=== PATIENT | female | born 1945 | race Caucasian/White ===

== ENCOUNTER 2021-01-26 06:26 | Day surgery (SDC) | payer MEDICARE, BC ==
[2021-01-25 16:40] VITALS: BMI 28.8
[2021-01-26 07:57] LABS: Anion Gap 10 mmol/L (10-20); BUN (Urea Nitrogen) 18 mg/dL (9.8-20.1); Calc. Creatinine Clearance 69 mL/min (70-130); Calcium 10.2 mg/dL (7.8-10.44); Carbon Dioxide 28 mmol/L (23-31); Chloride 106 mmol/L (98-107); Glucose 110 mg/dL (83-110); Potassium 3.2 mmol/L (3.5-5.1); Sodium 141 mmol/L (136-145)
[2021-01-26 08:09] LABS: INR-International Normal Ratio 1.2; Prothrombin Time 14.8 sec (12.0-14.7)
[2021-01-26 08:10] LABS: PTT 36.6 sec (22.9-36.1)
[2021-01-26] MEDS ORDERED: Lidocaine 1% PF 5 ML VIAL ONE (08:16)
[2021-01-26] MEDS ORDERED: PROPOFOL 200 MG/20 ML VIAL ONE (08:16)
== END 2021-01-26 09:30 | disposition home or self-care (01) ==
LOC: CCL 06:26
PROVIDERS: ATTEND Internal Medicine Cardiovascular Disease
PROC: 5A2204Z Restoration of Cardiac Rhythm, Single (ICD-10-PCS; principal; 2021-01-26)
PROC: B24BZZ4 Ultrasonography of Heart with Aorta, Transesophageal (ICD-10-PCS; 2021-01-26)
DX: I48.0 Paroxysmal atrial fibrillation (principal); I48.92 Unspecified atrial flutter; I08.3 Combined rheumatic disorders of mitral, aortic and tricuspid valves; I70.0 Atherosclerosis of aorta; I10 Essential (primary) hypertension; K21.9 Gastro-esophageal reflux disease without esophagitis; E03.9 Hypothyroidism, unspecified; E78.00 Pure hypercholesterolemia, unspecified; E78.2 Mixed hyperlipidemia; E66.8 Other obesity; Z68.28 Body mass index [BMI] 28.0-28.9, adult; Z79.01 Long term (current) use of anticoagulants; Z79.82 Long term (current) use of aspirin; Z79.899 Other long term (current) drug therapy; Z88.0 Allergy status to penicillin; Z88.1 Allergy status to other antibiotic agents; Z88.2 Allergy status to sulfonamides; Z88.7 Allergy status to serum and vaccine; Z88.8 Allergy status to other drugs, medicaments and biological substances
CPT/HCPCS: 80048; 85610; 85730; 92960; 93005; 93010; 93312; J2704

== ENCOUNTER 2021-02-26 | Observation (INO) | payer MEDICARE, BC | END 2021-02-28 15:00 | disposition home or self-care (01) | PROVIDERS: ADMIT Internal Medicine | PROC: 0JH632Z Insertion of Monitoring Device into Chest Subcutaneous Tissue and Fascia, Percutaneous Approach (ICD-10-PCS; principal; 2021-02-26) ==

== ENCOUNTER 2021-03-29 10:50 | Inpatient (IN) | payer MEDICARE, BC ==
[~2021-03-29 10:50] MED LIST: Iopamidol-370 76% 500 ML 1 ML ONE
[2021-03-29] MEDS ORDERED: Acetaminophen 500 MG TAB ONE (12:04)
[2021-03-29 12:16] LABS: Bacteria/HPF None Seen HPF (None Seen); Bilirubin Negative (Negative); Blood, Urine Trace (Negative); Clarity Clear (Clear); Glucose, Urine (Dipstick) Normal (Negative); Ketone, Urine Negative (Negative); Leukocyte Negative Leu/uL (Negative); Nitrite Negative (Negative); Protein, Urine (Dipstick) 30 mg/dL (Neg-Trace); Specific Gravity, Urine 1.019 (1.002-1.036); Squamous Epithelial 0-3 HPF (0-3); Urobilinogen Normal mg/dL (Less than 2); WBC/HPF 0-3 HPF (0-3); pH, Urine 6.5 (5.0-9.0)
[2021-03-29 12:34] LABS: #Basophils 0.1 thou/uL (0.0-0.2); #Eosinphils 0.3 thou/uL (0.0-0.7); #Monocytes 0.6 thou/uL (0.11-0.59); #Neutrophils 4.5 thou/uL (1.40-6.50); %Basophils 1.1 % (0.0-1.0); %Eosinophils 4.3 % (0.0-10.0); %Lymphocytes 16.1 % (21.0-51.0); %Monocytes 8.7 % (0.0-10.0); %Neutrophils 69.8 % (42.0-75.0); Hemoglobin 13.4 g/dL (12.0-16.0); Mean Corpuscular HGB CONC 33.5 g/dL (32.0-36.0); Mean Corpuscular Hemoglobin 28.6 pg (27.0-31.0); Mean Corpuscular Volume 85.4 fL (78.0-98.0); Mean Platelet Volume 8.1 fL (7.4-10.4); Platelet Count 208 thou/uL (130-400); RBC Distribution Width 13.8 % (11.5-14.5); Red Blood Cell (RBC) Count 4.67 mill/uL (4.20-5.40); White Blood Cell (WBC) Count 6.4 thou/uL (4.8-10.8)
[2021-03-29 12:36] LABS: Critical Call w/ Read Back 7333
[2021-03-29 13:07] LABS: ALT (SGPT) 12 U/L (8-55); AST (SGOT) 16 U/L (5-34); Alkaline Phosphatase 62 U/L (40-110); Anion Gap 12 mmol/L (10-20); BUN (Urea Nitrogen) 12 mg/dL (9.8-20.1); Bilirubin, Total 0.5 mg/dL (0.2-1.2); Calc. Creatinine Clearance 0 mL/min (70-130); Calcium 10.3 mg/dL (7.8-10.44); Carbon Dioxide 26 mmol/L (23-31); Chloride 104 mmol/L (98-107); Globulin 2.5 g/dL (2.4-3.5); Glucose 116 mg/dL (83-110); Potassium 3.3 mmol/L (3.5-5.1); Protein, Total 6.5 g/dL (5.8-8.1); Sodium 139 mmol/L (136-145)
[2021-03-29 13:24] LABS: Free T4 (Free Thyroxine) 0.85 ng/dL (0.70-1.48); Thyroid Stimulating Hormone 2.3584 uIU/mL (0.35-4.94)
[2021-03-29] MEDS ORDERED: Magnesium 2 GM/50 ML BAG (IN WATER) ONE (14:47)
[2021-03-29 15:16] LABS: SARS-CoV-2 PCR by NAA Not Detected (NotDetected)
[2021-03-29] MEDS ORDERED: MEROPENEM 1 GM/50 ML 1 GM in Premix Bag 1 BAG IVPB SCH (16:15)
[2021-03-29] MEDS ORDERED: Acetaminophen 500 MG TAB PO SCH (16:30)
[2021-03-29] MEDS ORDERED: Sodium Chloride 0.9% 1,000 ML IV SCH (16:30)
[2021-03-29] MEDS ORDERED: Propafenone HCl 150 MG TAB PO SCH (16:30)
[2021-03-29] MEDS ORDERED: Magnesium 2 GM/50 ML 2 GM in Premix Bag 1 BAG IVPB SCH (16:45)
[2021-03-29] MEDS ORDERED: Lactated Ringer's 1,000 ML IV SCH (18:30)
[2021-03-29 18:39] VITALS: BMI 27.7
[2021-03-29] MEDS: Apixaban 5 MG TAB PO SCH (21:06)
[2021-03-29] MEDS ORDERED: Acetaminophen 325 MG TAB PO PRN (22:01)
[2021-03-29] MEDS ORDERED: Acetaminophen 650 MG Suppository PR PRN (22:01)
[2021-03-29] MEDS ORDERED: Ondansetron ODT 4 MG TAB PO PRN (22:01)
[2021-03-29] MEDS ORDERED: Ondansetron PF 4 MG/2 ML Vial IVP PRN (22:01)
[2021-03-30] MEDS ORDERED: Meropenem 1 GM in Sodium Chloride 0.9% 100 ML IVPB SCH (00:50)
[2021-03-30] MEDS ORDERED: MEROPENEM 1 GM/50 ML 1 GM in Premix Bag 1 BAG IVPB SCH (01:00)
[2021-03-30] MEDS: MEROPENEM 1 GM/50 ML 1 GM in Premix Bag 1 BAG IVPB SCH ×3 (01:03→16:26)
[2021-03-30] MEDS ORDERED: Potassium Chloride 20 MEQ TAB PO SCH (01:45)
[2021-03-30 05:13] LABS: #Eosinphils 0.3 thou/uL (0.0-0.7); #Lymphocytes 1.5 thou/uL (1.20-3.40); #Monocytes 0.9 thou/uL (0.11-0.59); %Basophils 0.3 % (0.0-1.0); %Eosinophils 3.5 % (0.0-10.0); %Lymphocytes 19.4 % (21.0-51.0); %Monocytes 11.9 % (0.0-10.0); Hemoglobin 14.8 g/dL (12.0-16.0); Mean Corpuscular HGB CONC 32.5 g/dL (32.0-36.0); Mean Corpuscular Hemoglobin 28.6 pg (27.0-31.0); Mean Corpuscular Volume 87.9 fL (78.0-98.0); Mean Platelet Volume 8.1 fL (7.4-10.4); Platelet Count 199 thou/uL (130-400); RBC Distribution Width 14.1 % (11.5-14.5); Red Blood Cell (RBC) Count 5.17 mill/uL (4.20-5.40); White Blood Cell (WBC) Count 7.7 thou/uL (4.8-10.8)
[2021-03-30 05:33] LABS: Anion Gap 14 mmol/L (10-20); BUN (Urea Nitrogen) 9 mg/dL (9.8-20.1); Calc. Creatinine Clearance 74 mL/min (70-130); Calcium 9.8 mg/dL (7.8-10.44); Carbon Dioxide 22 mmol/L (23-31); Chloride 108 mmol/L (98-107); Glucose 103 mg/dL (83-110); Magnesium 2.2 mg/dL (1.6-2.6); Potassium 3.2 mmol/L (3.5-5.1); Sodium 141 mmol/L (136-145)
[2021-03-30] MEDS: Apixaban 5 MG TAB PO SCH ×2 (08:23→20:38)
[2021-03-30] MEDS ORDERED: Potassium Bicarbonate/Cit Ac 20 MEQ TAB PO SCH (09:00)
[2021-03-30] MEDS: Potassium Chloride 20 MEQ in Lactated Ringer's 1,000 ML IV SCH (09:26)
[2021-03-30] MEDS ORDERED: PROPOFOL 20 ML ONE (10:11)
[2021-03-30] MEDS: Propafenone HCl 150 MG TAB PO SCH ×2 (16:18→20:37)
[2021-03-31] MEDS: MEROPENEM 1 GM/50 ML 1 GM in Premix Bag 1 BAG IVPB SCH ×2 (00:42→08:37)
[2021-03-31] MEDS: Potassium Chloride 20 MEQ in Lactated Ringer's 1,000 ML IV SCH (00:54)
[2021-03-31 05:02] LABS: #Eosinphils 0.5 thou/uL (0.0-0.7); #Lymphocytes 1.4 thou/uL (1.20-3.40); #Monocytes 0.9 thou/uL (0.11-0.59); %Basophils 0.7 % (0.0-1.0); %Lymphocytes 20.3 % (21.0-51.0); %Monocytes 13.3 % (0.0-10.0); %Neutrophils 58.6 % (42.0-75.0); Hemoglobin 13.1 g/dL (12.0-16.0); Mean Corpuscular HGB CONC 34.1 g/dL (32.0-36.0); Mean Corpuscular Hemoglobin 29.8 pg (27.0-31.0); Mean Corpuscular Volume 87.2 fL (78.0-98.0); Platelet Count 185 thou/uL (130-400); RBC Distribution Width 14.1 % (11.5-14.5); White Blood Cell (WBC) Count 6.8 thou/uL (4.8-10.8)
[2021-03-31 05:21] LABS: ALT (SGPT) 11 U/L (8-55); AST (SGOT) 13 U/L (5-34); Albumin 3.6 g/dL (3.4-4.8); Alkaline Phosphatase 55 U/L (40-110); Anion Gap 13 mmol/L (10-20); BUN (Urea Nitrogen) 20 mg/dL (9.8-20.1); Bilirubin, Total 0.4 mg/dL (0.2-1.2); Calc. Creatinine Clearance 60 mL/min (70-130); Calcium 10.1 mg/dL (7.8-10.44); Carbon Dioxide 22 mmol/L (23-31); Chloride 107 mmol/L (98-107); Globulin 2.3 g/dL (2.4-3.5); Glucose 103 mg/dL (83-110); Magnesium 2.1 mg/dL (1.6-2.6); Potassium 3.2 mmol/L (3.5-5.1); Protein, Total 5.9 g/dL (5.8-8.1); Sodium 139 mmol/L (136-145)
[2021-03-31] MEDS: Propafenone HCl 150 MG TAB PO SCH (08:34)
[2021-03-31] MEDS: Apixaban 5 MG TAB PO SCH (08:34)
[2021-03-31] MEDS ORDERED: Potassium Chloride 20 MEQ TAB PO SCH (11:00)
[2021-03-31 12:16] VITALS: BP 120/60; TEMP 98.3
== END 2021-03-31 15:16 | disposition home health service (06) | DRG 309 ==
LOC: ERS 10:50 → 2NO 15:45
PROVIDERS: ADMIT Internal Medicine; ATTEND Internal Medicine
PROC: 5A2204Z Restoration of Cardiac Rhythm, Single (ICD-10-PCS; principal; 2021-03-30)
PROC: B24BZZ4 Ultrasonography of Heart with Aorta, Transesophageal (ICD-10-PCS; 2021-03-30)
DX: I48.19 Other persistent atrial fibrillation (principal); K57.32 Diverticulitis of large intestine without perforation or abscess without bleeding; Z20.822 Contact with and (suspected) exposure to COVID-19; I08.3 Combined rheumatic disorders of mitral, aortic and tricuspid valves; E78.5 Hyperlipidemia, unspecified; I10 Essential (primary) hypertension; E89.0 Postprocedural hypothyroidism; E87.6 Hypokalemia; I48.4 Atypical atrial flutter; Z86.73 Personal history of transient ischemic attack (TIA), and cerebral infarction without residual deficits; Z88.1 Allergy status to other antibiotic agents; Z88.0 Allergy status to penicillin; Z88.2 Allergy status to sulfonamides; Z79.899 Other long term (current) drug therapy; Z79.82 Long term (current) use of aspirin; Z79.890 Hormone replacement therapy; Z79.01 Long term (current) use of anticoagulants; Z90.49 Acquired absence of other specified parts of digestive tract; Z90.710 Acquired absence of both cervix and uterus
CPT/HCPCS: 36415; 71045; 74177; 80048; 80053; 81003; 81015; 83735; 83880; 84439; 84443; 84484; 85025; 92960; 93005; 93010; 93312; 96365; 96375; J2185; J2704; J3475; J3480; J7120; Q9967; U0003; U0005

== ENCOUNTER 2021-05-29 10:25 | Outpatient (CLI) | payer MEDICARE, BC ==
[2021-05-29 12:55] LABS: Hemoglobin 11.7 g/dL (12.0-15.5); Mean Corpuscular HGB CONC 32.4 g/dL (32.0-36.0); Mean Corpuscular Hemoglobin 27.8 pg (27.0-33.0); Mean Corpuscular Volume 85.7 fl (81.6-98.3); Mean Platelet Volume 10.3 fl (7.4-10.4); Platelet Count 237 10x3/uL (150-450); RBC Distribution Width 14.9 % (11.5-14.5); Red Blood Cell (RBC) Count 4.21 10x6/uL (3.90-5.03); White Blood Cell (WBC) Count 5.1 10x3/uL (3.5-10.5)
[2021-05-29 13:08] LABS: PTT 26.5 sec (22.0-33.0); Prothrombin Time 10.9 sec (9.5-12.1)
[2021-05-29 13:35] LABS: Anion Gap 10 mmol/L (10-20); BUN (Urea Nitrogen) 12 mg/dL (9.8-20.1); Calc. Creatinine Clearance 0 mL/min (70-130); Calcium 9.8 mg/dL (7.8-10.44); Carbon Dioxide 26 mmol/L (23-31); Chloride 106 mmol/L (98-107); Glucose 91 mg/dL (83-110); Potassium 3.4 mmol/L (3.5-5.1); Sodium 139 mmol/L (136-145)
[2021-05-29 21:15] LABS: SARS-CoV-2 PCR by NAA Not Detected (NotDetected)
== END 2021-05-29 10:26 | disposition home or self-care (01) ==
LOC: LABBT 10:25
PROVIDERS: ATTEND Internal Medicine Cardiovascular Disease
DX: Z01.818 Encounter for other preprocedural examination (principal); Z51.81 Encounter for therapeutic drug level monitoring; I51.9 Heart disease, unspecified; I48.91 Unspecified atrial fibrillation; Z79.01 Long term (current) use of anticoagulants; Z20.822 Contact with and (suspected) exposure to COVID-19
CPT/HCPCS: 80048; 85027; 85610; 85730; 93005; U0003; U0005; 93010

== ENCOUNTER 2021-06-01 09:43 | Day surgery (SDC) | payer MEDICARE, BC ==
[2021-05-30 12:00] VITALS: BMI 27.4
[2021-06-01] MEDS ORDERED: PROPOFOL 200 MG/20 ML VIAL ONE (11:49)
== END 2021-06-01 13:16 | disposition home or self-care (01) ==
LOC: SDC 09:43
PROVIDERS: ATTEND Internal Medicine Cardiovascular Disease
PROC: B24BZZ4 Ultrasonography of Heart with Aorta, Transesophageal (ICD-10-PCS; principal; 2021-06-01)
DX: I48.19 Other persistent atrial fibrillation (principal); I48.4 Atypical atrial flutter; I08.3 Combined rheumatic disorders of mitral, aortic and tricuspid valves; I70.0 Atherosclerosis of aorta; K21.9 Gastro-esophageal reflux disease without esophagitis; I10 Essential (primary) hypertension; Z79.01 Long term (current) use of anticoagulants; Z79.82 Long term (current) use of aspirin; Z79.899 Other long term (current) drug therapy; Z88.0 Allergy status to penicillin; Z88.1 Allergy status to other antibiotic agents; Z88.2 Allergy status to sulfonamides; Z86.73 Personal history of transient ischemic attack (TIA), and cerebral infarction without residual deficits
CPT/HCPCS: 93312; J2704

== ENCOUNTER 2022-02-05 07:45 | Inpatient (IN) | payer MEDICARE, BC ==
[2022-02-05 08:12] LABS: #Eosinphils 0.4 thou/uL (0.0-0.7); #Lymphocytes 1.1 thou/uL (1.20-3.40); #Monocytes 0.9 thou/uL (0.11-0.59); #Neutrophils 5.7 thou/uL (1.40-6.50); %Basophils 0.5 % (0.0-1.0); %Eosinophils 4.7 % (0.0-10.0); %Lymphocytes 13.6 % (21.0-51.0); %Monocytes 11.4 % (0.0-10.0); %Neutrophils 69.8 % (42.0-75.0); Mean Corpuscular HGB CONC 32.4 g/dL (32.0-36.0); Mean Corpuscular Hemoglobin 27.1 pg (27.0-31.0); Mean Corpuscular Volume 83.7 fL (78.0-98.0); Mean Platelet Volume 8.4 fL (7.4-10.4); Platelet Count 285 thou/uL (130-400); RBC Distribution Width 14.8 % (11.5-14.5); Red Blood Cell (RBC) Count 4.07 mill/uL (4.20-5.40); White Blood Cell (WBC) Count 8.1 thou/uL (4.8-10.8)
[2022-02-05 08:23] LABS: Prothrombin Time 13.2 sec (12.0-14.7)
[2022-02-05 08:24] LABS: PTT 27.5 sec (22.9-36.1)
[2022-02-05] MEDS ORDERED: Furosemide 40 MG/4 ML VIAL ONE (08:33)
[2022-02-05] MEDS ORDERED: Aspirin Chewable 81 MG TAB ONE (08:33)
[2022-02-05 08:36] LABS: ALT (SGPT) 22 U/L (8-55); AST (SGOT) 29 U/L (5-34); Alkaline Phosphatase 73 U/L (40-110); Anion Gap 15 mmol/L (10-20); BUN (Urea Nitrogen) 24 mg/dL (9.8-20.1); Bilirubin, Total 0.5 mg/dL (0.2-1.2); Calc. Creatinine Clearance 0 mL/min (70-130); Calcium 9.9 mg/dL (7.8-10.44); Carbon Dioxide 20 mmol/L (23-31); Chloride 105 mmol/L (98-107); Estimated GFR 85; Globulin 2.9 g/dL (2.4-3.5); Glucose 111 mg/dL (83-110); Potassium 4.4 mmol/L (3.5-5.1); Protein, Total 6.9 g/dL (5.8-8.1); Sodium 136 mmol/L (136-145)
[2022-02-05] MEDS ORDERED: Nitroglycerin 0.4 MG TAB (25 Tab Bottle) SL PRN (10:15)
[2022-02-05] MEDS ORDERED: Ondansetron ODT 4 MG TAB PO PRN (10:18)
[2022-02-05] MEDS ORDERED: Ondansetron PF 4 MG/2 ML Vial IVP PRN (10:18)
[2022-02-05] MEDS ORDERED: Acetaminophen 325 MG TAB PO PRN (10:18)
[2022-02-05 12:13] LABS: Troponin I 0.013 ng/mL (< 0.028)
[2022-02-05] MEDS ORDERED: Diltiazem HCl 125 MG in Premix Bag 1 BAG IVPB SCH ×2 (14:00→18:30)
[2022-02-05 14:24] VITALS: BMI 27.6
[2022-02-05 14:53] LABS: Troponin I 0.011 ng/mL (< 0.028)
[2022-02-06 04:33] LABS: #Eosinphils 0.3 thou/uL (0.0-0.7); #Lymphocytes 1.4 thou/uL (1.20-3.40); #Monocytes 0.9 thou/uL (0.11-0.59); #Neutrophils 5.1 thou/uL (1.40-6.50); %Basophils 0.3 % (0.0-1.0); %Eosinophils 3.8 % (0.0-10.0); %Lymphocytes 18.3 % (21.0-51.0); %Monocytes 12.1 % (0.0-10.0); %Neutrophils 65.5 % (42.0-75.0); Hemoglobin 11.2 g/dL (12.0-16.0); Mean Corpuscular HGB CONC 32.4 g/dL (32.0-36.0); Mean Corpuscular Hemoglobin 27.7 pg (27.0-31.0); Mean Corpuscular Volume 85.4 fL (78.0-98.0); Mean Platelet Volume 8.8 fL (7.4-10.4); Platelet Count 245 thou/uL (130-400); RBC Distribution Width 14.7 % (11.5-14.5); Red Blood Cell (RBC) Count 4.03 mill/uL (4.20-5.40); White Blood Cell (WBC) Count 7.7 thou/uL (4.8-10.8)
[2022-02-06 05:02] LABS: Anion Gap 16 mmol/L (10-20); BUN (Urea Nitrogen) 20 mg/dL (9.8-20.1); Calc. Creatinine Clearance 81 mL/min (70-130); Calcium 9.8 mg/dL (7.8-10.44); Carbon Dioxide 21 mmol/L (23-31); Chloride 105 mmol/L (98-107); Estimated GFR 90; Glucose 104 mg/dL (83-110); Potassium 3.4 mmol/L (3.5-5.1); Sodium 139 mmol/L (136-145)
[2022-02-06] MEDS ORDERED: Propofol 500 MG/50 ML VIAL ONE (07:40)
[2022-02-06] MEDS ORDERED: Midazolam HCl 2 mg/2 ml Vial ONE (07:40)
[2022-02-06] MEDS ORDERED: Ketamine 50 MG/ML (10ML VIAL) ONE (07:40)
[2022-02-06] MEDS ORDERED: fentaNYL Citrate/PF 100 MCG/2 ML SYRINGE ONE (07:40)
[2022-02-06] MEDS ORDERED: Levothyroxine Sodium 50 MCG TAB PO SCH (07:45)
[2022-02-06] MEDS ORDERED: Heparin 10,000 UNITS/ 10 ML VIAL ONE (07:47)
[2022-02-06] MEDS ORDERED: Clindamycin/D5W 900 mg/50 ml Premix Bag ONE (09:37)
[2022-02-06] MEDS ORDERED: DOPamine 400 MG/D5W 250 ML 0 ML ONE (09:37)
[2022-02-06] MEDS ORDERED: Gentamicin 80 MG/100 ML BAG ONE (09:42)
[2022-02-06] MEDS ORDERED: Lidocaine 1% (PF) 30 ML VIAL ONE (09:42)
[2022-02-06] MEDS ORDERED: Spironolactone 25 MG TAB PO SCH (10:30)
[2022-02-06] MEDS ORDERED: Promethazine HCl 25 MG/ML VIAL IM PRN (12:37)
[2022-02-06] MEDS ORDERED: Ondansetron HCl/PF 4 MG/2 ML Vial IVP PRN (12:37)
[2022-02-06] MEDS ORDERED: Promethazine HCl 25 MG/ML VIAL IVPB PRN (12:37)
[2022-02-06] MEDS: Aspirin Chewable 81 MG TAB PO SCH (16:09)
[2022-02-06] MEDS ORDERED: Rosuvastatin 5 MG TAB PO SCH (21:00)
[2022-02-06] MEDS: Doxycycline 100 MG CAP PO SCH (21:44)
[2022-02-07 04:56] LABS: #Eosinphils 0.2 thou/uL (0.0-0.7); #Lymphocytes 1.1 thou/uL (1.20-3.40); #Neutrophils 7.2 thou/uL (1.40-6.50); %Basophils 0.2 % (0.0-1.0); %Eosinophils 2.5 % (0.0-10.0); %Lymphocytes 11.4 % (21.0-51.0); %Monocytes 10.5 % (0.0-10.0); %Neutrophils 75.3 % (42.0-75.0); Hemoglobin 11.5 g/dL (12.0-16.0); Mean Corpuscular HGB CONC 32.2 g/dL (32.0-36.0); Mean Corpuscular Hemoglobin 27.2 pg (27.0-31.0); Mean Corpuscular Volume 84.5 fL (78.0-98.0); Mean Platelet Volume 8.7 fL (7.4-10.4); Platelet Count 243 thou/uL (130-400); RBC Distribution Width 14.7 % (11.5-14.5); Red Blood Cell (RBC) Count 4.25 mill/uL (4.20-5.40); White Blood Cell (WBC) Count 9.6 thou/uL (4.8-10.8)
[2022-02-07 05:14] LABS: Anion Gap 13 mmol/L (10-20); BUN (Urea Nitrogen) 11 mg/dL (9.8-20.1); Calc. Creatinine Clearance 85 mL/min (70-130); Calcium 9.5 mg/dL (7.8-10.44); Carbon Dioxide 24 mmol/L (23-31); Chloride 103 mmol/L (98-107); Estimated GFR 91; Glucose 101 mg/dL (83-110); Potassium 3.3 mmol/L (3.5-5.1); Sodium 137 mmol/L (136-145)
[2022-02-07] MEDS ORDERED: Levothyroxine Sodium 50 MCG TAB PO SCH (06:00)
[2022-02-07] MEDS ORDERED: Spironolactone 25 MG TAB PO SCH (08:00)
[2022-02-07] MEDS ORDERED: Potassium Chloride 20 MEQ TAB PO SCH (08:00)
[2022-02-07] MEDS ORDERED: Sacubitril 49 MG/Valsartan 51 MG TABLET PO SCH (09:00)
[2022-02-07] MEDS: Doxycycline 100 MG CAP PO SCH (09:10)
[2022-02-07] MEDS: Aspirin Chewable 81 MG TAB PO SCH (09:11)
[2022-02-07] MEDS ORDERED: Midazolam HCl 2 mg/2 ml Vial ONE (10:40)
[2022-02-07] MEDS ORDERED: PROPOFOL 200 MG/20 ML VIAL ONE (11:30)
[2022-02-07 12:27] VITALS: TEMP 97.6
[2022-02-07 13:40] VITALS: BP 155/67
== END 2022-02-07 13:43 | disposition home or self-care (01) | DRG 273 ==
LOC: ERS 07:45 → ERHOLD 10:11 → 2NO 13:50 → OBSVTOIN 02-06 09:54
PROVIDERS: ADMIT Internal Medicine; ATTEND Internal Medicine
PROC: 02583ZZ Destruction of Conduction Mechanism, Percutaneous Approach (ICD-10-PCS; principal; 2022-02-06)
PROC: 02WA0MZ Revision of Cardiac Lead in Heart, Open Approach (ICD-10-PCS; 2022-02-06)
PROC: 02K83ZZ Map Conduction Mechanism, Percutaneous Approach (ICD-10-PCS; 2022-02-06)
DX: I48.19 Other persistent atrial fibrillation (principal); I50.23 Acute on chronic systolic (congestive) heart failure; I24.8 Other forms of acute ischemic heart disease; I48.92 Unspecified atrial flutter; I42.9 Cardiomyopathy, unspecified; I44.2 Atrioventricular block, complete; I48.0 Paroxysmal atrial fibrillation; K21.9 Gastro-esophageal reflux disease without esophagitis; I25.10 Atherosclerotic heart disease of native coronary artery without angina pectoris; I34.0 Nonrheumatic mitral (valve) insufficiency; I11.0 Hypertensive heart disease with heart failure; E78.5 Hyperlipidemia, unspecified; Z86.73 Personal history of transient ischemic attack (TIA), and cerebral infarction without residual deficits; Z95.0 Presence of cardiac pacemaker; Z90.49 Acquired absence of other specified parts of digestive tract; Z90.710 Acquired absence of both cervix and uterus; Z88.8 Allergy status to other drugs, medicaments and biological substances; Z88.0 Allergy status to penicillin; Z88.2 Allergy status to sulfonamides; Z79.82 Long term (current) use of aspirin; Z79.899 Other long term (current) drug therapy; Z79.01 Long term (current) use of anticoagulants
CPT/HCPCS: 33216; 33234; 36415; 71045; 80048; 80053; 83880; 84484; 85025; 85610; 85730; 93005; 93306; 93650; 93798; 94640; 94760; 96374; 96375; C1766; C1769; C1898; G0378; J1265; J1580; J1644; J1940; J2001; J2250; J2704; J3490; U0003; U0005